=== PATIENT | female | born 1950 | race American Indian/Alaskan Native ===

== ENCOUNTER 2017-07-22 11:50 | Emergency (ER) | payer MEDICARE, MEDICAID ==
[2017-07-22 12:38] LABS: Basophils # (Auto) 0.1 K/mm3 (0.0-0.1); Basophils % (Auto) 1.2 % (0.0-1.8); Eosinophils # (Auto) 0.1 K/mm3 (0.0-0.4); Eosinophils % (Auto) 1.2 % (0.0-4.3); Hematocrit 41.6 % (30.3-42.9); Hemoglobin 13.6 gm/dl (10.1-14.3); Lymphocytes # (Auto) 1.5 K/mm3 (1.2-5.4); Lymphocytes % (Auto) 23.4 % (13.4-35.0); Mean Corpuscular HGB Conc 33 % (30-34); Mean Corpuscular Hemoglobin 26 pg (28-32); Mean Corpuscular Volume 80 fl (79-97); Monocytes # (Auto) 0.5 K/mm3 (0.0-0.8); Monocytes % (Auto) 8.1 % (0.0-7.3); Platelet Count 279 K/mm3 (140-440); Red Blood Count 5.19 M/mm3 (3.65-5.03); Red Cell Distribution Width 14.7 % (13.2-15.2)
[2017-07-22 13:17] LABS: Alanine Aminotransferase 17 units/L (7-56); Albumin 4.1 g/dL (3.9-5); BUN/Creatinine Ratio 16; Blood Urea Nitrogen 13 mg/dL (7-17); Calcium 9.8 mg/dL (8.4-10.2); Hemolysis Index 58
--- NOTE | 2017-07-22 14:40 | Cat Scan Report ---
FINAL REPORT EXAM: CT HEAD/BRAIN WO CON HISTORY: confusion TECHNIQUE: CT of the head was performed without intravenous contrast. PRIORS: None. FINDINGS: The ventricles are normal in shape and position. The ventricles are nondilated. No intracranial hemorrhage, mass, mass effect, midline shift or evidence of acute ischemic infarct. The basilar cisterns are patent. Mild areas of low-attenuation are seen in the periventricular and subcortical white matter. The paranasal sinuses are clear. The extracranial soft tissues demonstrate no abnormality. The calvarium is intact. The orbits are intact. The mastoid air cells are clear. IMPRESSION: 1. No acute intracranial abnormality. 2. Mild findings of chronic microvascular ischemic disease.
--- NOTE | 2017-07-22 23:17 | Emergency Department Report ---
HPI - General Chief Complaint: Altered Mental Status Time Seen by Provider: 07/22/17 23:15 - HPI HPI: Patient was brought to ED by her who states that she has been forgetting things for the past 3-4 months. Patient is 67-year-old black female , with history of blood pressure, also complains of difficulty sleeping mostly waking up during the middle of the night after she already fallen asleep. She denies any fever, chills, night sweats. Patient states she's been traveling and has not had time to see a primary care physician. She denies any focal weakness, slurred speech, does remember the dates, or family members names. ED Past Medical Hx - Past Medical History Hx Hypertension: Yes Hx CVA: No - Surgical History Past Surgical History?: No - Social History Smoking Status: Never Smoker Substance Use Type: None - Medications Home Medications: Home Medications Medication Instructions Recorded Confirmed Last Taken Type Hydroxyzine HCl 25 mg PO QHS #30 tablet 07/22/17 Unknown Rx Olmesartan/Amlodipin/Hcthiazid 1 each PO QDAY #90 tablet 07/22/17 Unknown Rx [Tribenzor 20-5-12.5 mg Tablet] ED Review of Systems ROS: Stated complaint: ALTERED MENTAL STATUS Other details as noted in HPI Comment: All other systems reviewed and negative Genitourinary: denies: urgency, dysuria Musculoskeletal: denies: back pain Skin: denies: as per HPI Neurological: other (memory loss) Physical Exam - Physical Exam Vital Signs: Vital Signs 07/22/17 11:54 Temperature 98.6 F Pulse Rate 99 H Respiratory 16 Rate Blood Pressure 178/100 O2 Sat by Pulse 100 Oximetry Physical Exam: - Physical Exam Physical Exam: - General Limitations: No Limitations General appearance: alert, in no apparent distress, obese - Head Head exam: Present: atraumatic, normocephalic - Eye Eye exam: Present: normal appearance - ENT ENT exam: Present: mucous membranes moist - Neck Neck exam: Present: normal inspection - Respiratory Respiratory exam: Present: normal lung sounds bilaterally. Absent: respiratory distress - Cardiovascular Cardiovascular Exam: Present: normal rhythm, tachycardia. Absent: systolic murmur, diastolic murmur, rubs, gallop - GI/Abdominal GI/Abdominal exam: Present: soft, normal bowel sounds - Extremities Exam Extremities exam: Present: normal inspection - Back Exam Back exam: Present: normal inspection - Neurological Exam Neurological exam: Present: alert, oriented X3 - Psychiatric Psychiatric exam: normal affect and mood - Skin Skin exam: Present: warm, dry, intact, normal color. Absent: rash ED Course Vital Signs 07/22/17 11:54 Temperature 98.6 F Pulse Rate 99 H Respiratory 16 Rate Blood Pressure 178/100 O2 Sat by Pulse 100 Oximetry ED Medical Decision Making - Lab Data Result diagrams: 07/22/17 12:22 07/22/17 12:23 Critical care attestation.: If time is entered above; I have spent that time in minutes in the direct care of this critically ill patient, excluding procedure time. ED Disposition Clinical Impression: Hypertension, Insomnia Disposition: DC-01 TO HOME OR SELFCARE Is pt being admited?: No Does the pt Need Aspirin: No Condition: Stable Instructions: Hypertension (ED), Insomnia (ED) Prescriptions: Hydroxyzine HCl 25 mg PO QHS #30 tablet Olmesartan/Amlodipin/Hcthiazid [Tribenzor 20-5-12.5 mg Tablet] 1 each PO QDAY # 90 tablet Referrals: PRIMARY CARE, [Primary Care Provider] - 3-5 Days
[2017-07-22] MEDS ORDERED: CATAPRES PO ONE (23:27)
[2017-07-22 23:38] VITALS: BP 157/92
== END 2017-07-23 00:02 | disposition home or self-care (01) ==
LOC: ED 11:50
DX: I10 Essential (primary) hypertension (principal); G47.00 Insomnia, unspecified
CPT/HCPCS: 36415; 70450; 80053; 84443; 85025; 93005; 93010; 99284; G0480; 80320

== ENCOUNTER 2018-08-08 10:41 | Outpatient (CLI) | payer MEDICAID, MEDICARE ==
--- NOTE | 2018-08-08 14:08 | Mammography Report ---
BILATERAL DIGITAL SCREENING MAMMOGRAM with CAD: 08/08/18 10:41:00 CLINICAL: Routine screening. COMPARISON:None available. She did indicate that she had had a prior mammogram in [place] but did not give the name of a specific institution. FINDINGS: The breasts are heterogeneously dense, which may obscure small masses. Bilateral asymmetries require additional imaging.No architectural distortion or suspicious calcifications. IMPRESSION: Bilateral asymmetries requiring further workup. BI-RADS CATEGORY: 0 -- Additional Imaging Evaluation Required RECOMMENDATION: Recall for bilateral true lateral and spot compression views and bilateral ultrasound. ACR BI-RADS MAMMOGRAPHIC CODES: 0 = Needs additional imaging evaluation; 1 = Negative; 2 = Benign; 3 = Probably benign; 4 = Suspicious; 5 = Malignant; 6 = Known biopsy-proven malignancy COMMENT: 1. Dense breast tissue, i.e., adenosis, fibrocystic changes, etc., may obscure an underlying neoplasm. 2. Approximately 10% of cancers are not detected with mammography. 3. A negative mammography report should not delay biopsy if a clinically suspicious mass is present. COMMENT: Patient follow-up letters are generated via our [email or web address] application.
== END 2018-08-08 10:42 | disposition home or self-care (01) ==
LOC: SPVWC 10:41
PROVIDERS: ATTEND Hospitalist
DX: Z12.31 Encounter for screening mammogram for malignant neoplasm of breast (principal); I10 Essential (primary) hypertension
CPT/HCPCS: 77067

== ENCOUNTER 2019-01-31 14:02 | Outpatient (CLI) | payer MEDICARE ==
--- NOTE | 2019-01-31 15:43 | Ultrasound Report ---
BILATERAL DIGITAL DIAGNOSTIC MAMMOGRAM WITH CAD -- 01/31/2019 BILATERAL LIMITED BREAST ULTRASOUND INDICATION: ABNORMAL MAMMOGRAM/DANIELLE ASYMMETRIES TECHNIQUE: Digital bilateral mammographic imaging was performed. Spot compression views were obtaine d. Limited ultrasound was performed. This examination was interpreted with the benefit of Computer- ded Detection (CAD) analysis. COMPARISON: 08/08/2018 FINDINGS: Breast Density: The breasts are heterogeneously dense, which may obscure small masses. MAMMOGRAPHIC FINDINGS: Partial effacement of bilateral asymmetries. ULTRASOUND FINDINGS: Targeted ultrasound evaluation was performed of the area of interest. Ultrasou nd of the right breast demonstrates an oval complex cyst versus solid mass at 4:00 3 cm from the nipp le. It measures 6 x 6 x 6 mm and has an irregular margin. Ultrasound of the left breast demonstrates benign duct ectasia and a cluster of benign cysts at 7:00 2 cm from the nipple. IMPRESSION: A 6 mm complex cyst versus solid mass of the right breast at 4:00 3 cm from the nipple. R ecommend ultrasound-guided needle aspiration/biopsy. Benign cysts and benign duct ectasia of the left breast. Recommend routine screening of the left breast. I discussed the findings and the recommendation for needle core biopsy of the right breast with the p atient at the time of the exam. Follow up recommendation: Biopsy BI-RADS Category 4: Suspicious for Malignancy. A "normal" or negative report should not discourage follow up or biopsy of a clinically significant f inding. A written summary of these findings will be mailed to the patient. The patient will be entered into a mammography reporting system which will generate a reminder letter for the patient's next appointmen t at the appropriate interval. According to the [employer], yearly mammograms are recommended starting at age 40 and continuing as long as a woman is in good health. Breast MRI is recommended for women with an maría elena roximately 20-25% or greater lifetime risk of breast cancer, including women with a strong family his tory of breast or ovarian cancer and women who have been treated for Hodgkin's disease. Signer Name: Theodore Quick MD Signed: 01/31/2019 3:39 PM Workstation Name: [id number]
== END 2019-01-31 14:03 | disposition home or self-care (01) ==
LOC: SPVWC 14:02
PROVIDERS: ATTEND Hospitalist
DX: R92.8 Other abnormal and inconclusive findings on diagnostic imaging of breast (principal); I10 Essential (primary) hypertension
CPT/HCPCS: 77066

== ENCOUNTER 2020-01-30 17:42 | Emergency (ER) | payer MEDICARE ==
--- NOTE | 2020-01-30 20:11 | Cat Scan Report ---
CT BRAIN: 01/30/2020 INDICATION / CLINICAL INFORMATION: LAWRENCE and dizziness x 2 weeks. COMPARISON: None available. FINDINGS: BRAIN/INTRACRANIAL STRUCTURES: Unenhanced CT images of the brain demonstrate no evidence of acute int racranial abnormality. Ventricles and sulci are within normal limits of size and shape for a patient of this age. There is no evidence of ischemic injury, hemorrhage, or mass. There are no abnormal extra-axial fluid collections. EXTRACRANIAL STRUCTURES: Unremarkable. IMPRESSION: No acute abnormality. All CT scans at this location are performed using dose reduction to ALARA by means of automated expos ure control. Signer Name: Ishan Mendoza MD Signed: 01/30/2020 8:07 PM Workstation Name: [id number]
[2020-01-30 21:38] LABS: Alanine Aminotransferase 14 units/L (7-56); Albumin 4.6 g/dL (3.9-5); BUN/Creatinine Ratio 15; Blood Urea Nitrogen 12 mg/dL (7-17); Calcium 10.1 mg/dL (8.4-10.2); Hemolysis Index 12
[2020-01-30] MEDS ORDERED: MECLIZINE 25 MG TAB PO ONE (21:39)
[2020-01-30] MEDS ORDERED: BUTALB/ACETAMINOPHEN/CAFFEINE TAB PO ONE (21:39)
[2020-01-30 21:40] LABS: Basophils % (Auto) 0.5 % (0.0-1.8); Eosinophils # (Auto) 0.1 K/mm3 (0.0-0.4); Hematocrit 39.5 % (30.3-42.9); Hemoglobin 12.8 gm/dl (10.1-14.3); Lymphocytes # (Auto) 2.3 K/mm3 (1.2-5.4); Mean Corpuscular HGB Conc 32 % (30-34); Mean Corpuscular Volume 80 fl (79-97); Monocytes # (Auto) 0.5 K/mm3 (0.0-0.8); Monocytes % (Auto) 7.3 % (0.0-7.3); Platelet Count 240 K/mm3 (140-440); Red Blood Count 4.95 M/mm3 (3.65-5.03); Red Cell Distribution Width 14.4 % (13.2-15.2)
--- NOTE | 2020-01-30 21:47 | Emergency Department Report ---
ED General Adult HPI - General Chief complaint: Headache Stated complaint: HEADACHE Time Seen by Provider: 01/30/20 21:00 Source: patient Mode of arrival: Ambulatory Limitations: No Limitations - History of Present Illness Initial comments: Patient presents to the emergency department with a chief complaint of a headache that has been present for the last 2 weeks along with dizziness that started within the last couple days. Patient states the dizziness improves with sitting still and states that it actually resolves while sitting still. Patient states when she stands up or moves her head the dizziness occurs. Patient complains of a diffuse headache that is been present for the last 2 weeks and not the worst headache of her life. Patient denies any recent trauma, abdominal pain, chest pain. -: Gradual, week(s) (2) Location: head Severity scale (0 -10): 4 Quality: aching Consistency: constant Improves with: none Worsens with: none Associated Symptoms: denies other symptoms Treatments Prior to Arrival: none - Related Data Previous Rx's Medication Instructions Recorded Last Taken Type Olmesartan/Amlodipin/Hcthiazid 1 each PO QDAY #90 tablet 07/22/17 Unknown Rx [Tribenzor 20-5-12.5 mg Tablet] hydrOXYzine HCL [Hydroxyzine HCl] 25 mg PO QHS #30 tablet 07/22/17 Unknown Rx Butalb/Acetamin/Caff 50-325-40 1 tab PO Q6HR PRN #24 tab 01/30/20 Unknown Rx [Fioricet] Meclizine [Antivert] 25 mg PO TID PRN #30 tablet 01/30/20 Unknown Rx Allergies Allergy/AdvReac Type Severity Reaction Status Date / Time No Known Allergies Allergy Unverified 07/22/17 12:01 ED Review of Systems ROS: Stated complaint: HEADACHE Other details as noted in HPI Comment: All other systems reviewed and negative Constitutional: denies: chills, fever Eyes: denies: eye pain, eye discharge, vision change ENT: denies: ear pain, throat pain Respiratory: denies: cough, shortness of breath, wheezing Cardiovascular: denies: chest pain, palpitations Endocrine: no symptoms reported Gastrointestinal: denies: abdominal pain, nausea, diarrhea Genitourinary: denies: urgency, dysuria, discharge Musculoskeletal: denies: back pain, joint swelling, arthralgia Skin: denies: rash, lesions Neurological: headache, other (dizziness). denies: weakness, paresthesias Psychiatric: denies: anxiety, depression Hematological/Lymphatic: denies: easy bleeding, easy bruising ED Past Medical Hx - Past Medical History Previous Medical History?: Yes Hx Hypertension: Yes Hx CVA: No - Social History Smoking Status: Never Smoker Substance Use Type: None - Medications Home Medications: Home Medications Medication Instructions Recorded Confirmed Last Taken Type Olmesartan/Amlodipin/Hcthiazid 1 each PO QDAY #90 tablet 07/22/17 Unknown Rx [Tribenzor 20-5-12.5 mg Tablet] hydrOXYzine HCL [Hydroxyzine HCl] 25 mg PO QHS #30 tablet 07/22/17 Unknown Rx Butalb/Acetamin/Caff 50-325-40 1 tab PO Q6HR PRN #24 tab 01/30/20 Unknown Rx [Fioricet] Meclizine [Antivert] 25 mg PO TID PRN #30 tablet 01/30/20 Unknown Rx ED Physical Exam - General Limitations: No Limitations General appearance: alert, in no apparent distress - Head Head exam: Present: atraumatic, normocephalic - Eye Eye exam: Present: normal appearance, PERRL, EOMI - ENT ENT exam: Present: mucous membranes moist - Neck Neck exam: Present: normal inspection - Respiratory Respiratory exam: Present: normal lung sounds bilaterally. Absent: respiratory distress - Cardiovascular Cardiovascular Exam: Present: regular rate, normal rhythm. Absent: systolic murmur, diastolic murmur, rubs, gallop - GI/Abdominal GI/Abdominal exam: Present: soft, normal bowel sounds. Absent: distended, tenderness - Extremities Exam Extremities exam: Present: normal inspection - Back Exam Back exam: Present: normal inspection - Neurological Exam Neurological exam: Present: alert, oriented X3, CN II-XII intact, normal gait, other (Able to re-create symptoms with rapid head and eye movement. Negative [id number], [id number], rapid hand movement kxsksc-ve-[id number], rapid hand movement, [id number].). Absent: motor sensory deficit - Psychiatric Psychiatric exam: Present: normal affect, normal mood - Skin Skin exam: Present: warm, dry, intact, normal color. Absent: rash ED Course Vital Signs 01/30/20 01/30/20 01/30/20 17:26 17:30 17:46 Temperature Pulse Rate 84 Respiratory 13 21 Rate Blood Pressure 131/114 Blood Pressure [Right] O2 Sat by Pulse 100 88 100 Oximetry 01/30/20 01/30/20 01/30/20 18:00 18:09 18:15 Temperature 98.4 F Pulse Rate 72 76 66 Respiratory 26 H 18 22 Rate Blood Pressure 102/36 86/37 Blood Pressure 147/84 [Right] O2 Sat by Pulse 97 100 Oximetry 01/30/20 01/30/20 01/30/20 18:52 21:15 21:30 Temperature Pulse Rate Respiratory 24 Rate Blood Pressure 86/37 166/81 154/77 Blood Pressure [Right] O2 Sat by Pulse 100 99 99 Oximetry 01/30/20 01/30/20 01/30/20 21:45 22:00 22:15 Temperature Pulse Rate Respiratory 16 Rate Blood Pressure 154/77 172/145 149/79 Blood Pressure [Right] O2 Sat by Pulse 99 100 98 Oximetry 01/30/20 01/30/20 01/30/20 22:30 22:45 23:01 Temperature Pulse Rate Respiratory Rate Blood Pressure 145/78 145/78 130/80 Blood Pressure [Right] O2 Sat by Pulse 97 100 98 Oximetry ED Medical Decision Making - Lab Data Result diagrams: 01/30/20 21:06 01/30/20 21:06 Lab Results 01/30/20 01/30/20 01/30/20 Range/Units 21:06 21:06 Unknown WBC 6.3 (4.5-11.0) K/mm3 RBC 4.95 (3.65-5.03) M/mm3 Hgb 12.8 (10.1-14.3) gm/dl Hct 39.5 (30.3-42.9) % MCV 80 (79-97) fl MCH 26 L (28-32) pg MCHC 32 (30-34) % RDW 14.4 (13.2-15.2) % Plt Count 240 (140-440) K/mm3 Lymph % (Auto) 37.0 H (13.4-35.0) % Petroleum % (Auto) 7.3 (0.0-7.3) % Eos % (Auto) 2.0 (0.0-4.3) % Baso % (Auto) 0.5 (0.0-1.8) % Lymph # (Auto) 2.3 (1.2-5.4) K/mm3 Petroleum # (Auto) 0.5 (0.0-0.8) K/mm3 Eos # (Auto) 0.1 (0.0-0.4) K/mm3 Baso # (Auto) 0.0 (0.0-0.1) K/mm3 Seg Neutrophils % 53.2 (40.0-70.0) % Seg Neutrophils # 3.4 (1.8-7.7) K/mm3 Sodium 139 (137-145) mmol/L Potassium 3.5 L (3.6-5.0) mmol/L Chloride 97.6 L (98-107) mmol/L Carbon Dioxide 30 (22-30) mmol/L Anion Gap 15 mmol/L BUN 12 (7-17) mg/dL Creatinine 0.8 (0.6-1.2) mg/dL Estimated GFR > 60 ml/min BUN/Creatinine Ratio 15 % Glucose 106 H (65-100) mg/dL Calcium 10.1 (8.4-10.2) mg/dL Total Bilirubin 0.90 (0.1-1.2) mg/dL AST 19 (5-40) units/L ALT 14 (7-56) units/L Alkaline Phosphatase 56 (35-129) units/L Troponin T < 0.010 (0.00-0.029) ng/mL Total Protein 7.9 (6.3-8.2) g/dL Albumin 4.6 (3.9-5) g/dL Albumin/Globulin Ratio 1.4 % Urine Color Colorless (Yellow) Urine Turbidity Clear (Clear) Urine pH 7.0 (5.0-7.0) Ur Specific [place] 1.005 (1.003-1.030) Urine Protein <15 mg/dl (Negative) mg/dL Urine Glucose (UA) Neg (Negative) mg/dL Urine Ketones Tr (Negative) mg/dL Urine Blood Neg (Negative) Urine Nitrite Neg (Negative) Ur Reducing Substances Not Reportable Urine Bilirubin Neg (Negative) Urine Ictotest Not Reportable Urine Urobilinogen < 2.0 (<2.0) mg/dL Ur Leukocyte Esterase Tr (Negative) Urine WBC (Auto) 1.0 (0.0-6.0) /HPF Urine RBC (Auto) 1.0 (0.0-6.0) /HPF U Epithel Cells (Auto) < 1.0 (0-13.0) /HPF Urine Bacteria (Auto) 1+ (Negative) /HPF - EKG Data -: EKG Interpreted by Me EKG shows normal: sinus rhythm Rate: normal - Radiology Data Radiology results: report reviewed - Medical Decision Making Discussed results with patient Critical care attestation.: If time is entered above; I have spent that time in minutes in the direct care of this critically ill patient, excluding procedure time. ED Disposition Clinical Impression: Vertigo, Headache Disposition: DC-01 TO HOME OR SELFCARE Is pt being admited?: No Does the pt Need Aspirin: No Condition: Stable Instructions: Vertigo (ED), Acute Headache (ED) Additional Instructions: return if you become worse Referrals: DAVID GOLDSTEIN MD [Primary Care Provider] - 3-5 Days Time of Disposition: 23:25
[2020-01-30] MEDS ORDERED: HYDROmorphone 1 MG/1 ML INJ IV ONE (22:16)
[2020-01-30 23:15] LABS: Bacteria,Urine 1+ /HPF (Negative)
[2020-01-30 23:17] LABS: Bilirubin,Urine NEG (Negative); Blood,Urine NEG (Negative); Color,Urine Colorless (Yellow); Protein,Urine <15 mg/dL mg/dL (Negative); Urobilinogen,Urine < 2.0 mg/dL (<2.0)
[2020-01-30 23:40] VITALS: BP 137/75
== END 2020-01-30 23:39 | disposition home or self-care (01) ==
LOC: ED 17:42
DX: R42 Dizziness and giddiness (principal); R51 Headache; I10 Essential (primary) hypertension; Z79.899 Other long term (current) drug therapy
CPT/HCPCS: 36415; 70450; 80053; 81001; 84484; 85025; 93005; 99284; J1170